=== PATIENT | female | born 1945 ===

== ENCOUNTER 2022-08-26 05:57 | Day surgery (SDC) | payer OTHER ==
[~2022-08-26] VITALS: Ht 165.1 cm; Wt 63.5 kg
[~2022-08-26 05:57] MED LIST: ANASTROZOLE1 MG PO; COZAAR100 MG PO; CRESTOR5 MG PO; TOPROL XL50 M1 PO; ZOLOFT100 MG PO
== END 2022-08-26 11:55 | disposition home or self-care (01) ==
LOC: CIR.AMB 05:57
PROVIDERS: ATTEND Orthopaedic Surgery Hand Surgery
DX: G56.02 Carpal tunnel syndrome, left upper limb (principal); E11.9 Type 2 diabetes mellitus without complications; E78.00 Pure hypercholesterolemia, unspecified; Z20.822 Contact with and (suspected) exposure to COVID-19; I10 Essential (primary) hypertension

== ENCOUNTER 2023-01-27 05:32 | Day surgery (SDC) | payer OTHER ==
[2023-01-22 10:12] LABS: HEMATOCRIT 37.7 % (36.0-45.00); HEMOGLOBIN 12.8 g/dL (12.0-15.00); MEAN CELL VOLUME 88.5 fL (80.00-100.00); PLATELET COUNT 236 K/uL (150-450); RED BLOOD COUNT 4.26 M/uL (4.00-6.00); RED CELL DISTRIBUTION WIDTH 13.7 % (11.5-14.5)
[2023-01-22 10:16] LABS: PH,URINE 5.5 (5.0-8.0); URINE APPEARANCE Clear; URINE BILIRRUBIN Negative (NEGATIVE); URINE BLOOD Negative; URINE COLOR Yellow; URINE GLUCOSE Negative (NEGATIVE); URINE LEUKOCYTE Negative; URINE NITRATE Negative; URINE PROTEIN Negative (NEGATIVE); URINE UROBILINOGEN 0.2 E.U./dl
[2023-01-22 10:20] LABS: URINE BACTERIA 6.2 uL (0.0-1933); URINE RBC 2.2 uL (0.0-20.8); URINE WBC 2.6 uL (0.0-23.2)
[2023-01-22 10:27] LABS: URINE EPITHELIAL CELLS 0.7 uL (0.0-38.8)
[2023-01-22 10:33] LABS: INR 0.97; PARTIAL THROMBOPLASTIN TIME 26.7 SECONDS (22.0-34.0); PROTHROMBIN TIME 10.2 SECONDS (9.0-11.5)
[2023-01-22 11:16] LABS: ALBUMIN 3.6 gm/dL (3.4-5.0); BILIRUBIN TOTAL 0.65 mg/dL (0.3-1.2); CALCIUM 9.3 mg/dL (8.5-10.1); CREATININE SERUM 1.16 mg/dL (0.55-1.02); GFR 45.06; GLOBULINA 3.4 G/DL (2.4-3.5); POTASSIUM 5.09 mEq/L (3.5-5.1)
[~2023-01-27] VITALS: Ht 165.1 cm; Wt 63.5 kg
[~2023-01-27 05:32] MED LIST changes: +LEVO-T25 MCG PO
== END 2023-01-27 11:00 | disposition home or self-care (01) ==
LOC: CIR.AMB 05:32
PROVIDERS: ATTEND Orthopaedic Surgery Hand Surgery
DX: G56.01 Carpal tunnel syndrome, right upper limb (principal); E11.9 Type 2 diabetes mellitus without complications; E78.00 Pure hypercholesterolemia, unspecified; E78.3 Hyperchylomicronemia; I10 Essential (primary) hypertension

== ENCOUNTER 2023-11-17 07:15 | Day surgery (SDC) | payer OTHER ==
[2023-11-16 12:47] LABS: HEMATOCRIT 35.2 % (36.0-45.00); HEMOGLOBIN 11.9 g/dL (12.0-15.00); MEAN CELL VOLUME 88.3 fL (80.00-100.00); MEAN CORPUSCULAR HEMOGLOBIN 29.8 pg (27.00-32.0); MEAN CORPUSCULAR HGB CONC 33.8 g/dl (32.0-36.0); PLATELET COUNT 245 K/uL (150-450); RED BLOOD COUNT 3.98 M/uL (4.00-6.00); RED CELL DISTRIBUTION WIDTH 14.1 % (11.5-14.5)
[2023-11-16 12:48] LABS: PH,URINE 5.5 (5.0-8.0); URINE APPEARANCE Clear; URINE BILIRRUBIN Negative (NEGATIVE); URINE BLOOD Negative; URINE COLOR Yellow; URINE GLUCOSE Negative (NEGATIVE); URINE KETONE Negative (NEGATIVE); URINE LEUKOCYTE Negative; URINE NITRATE Negative; URINE PROTEIN Negative (NEGATIVE); URINE UROBILINOGEN 0.2 E.U./dl
[2023-11-16 12:53] LABS: URINE BACTERIA 11.3 uL (0.0-1933); URINE EPITHELIAL CELLS 2.9 uL (0.0-38.8); URINE RBC 3.2 uL (0.0-20.8); URINE WBC 2.7 uL (0.0-23.2)
[2023-11-16 12:57] LABS: URINE CAST 0.15 uL (0.0-1.40)
[2023-11-16 13:24] LABS: INR 0.96; PARTIAL THROMBOPLASTIN TIME 29.3 SECONDS (22.0-34.0); PROTHROMBIN TIME 10.1 SECONDS (9.0-11.5)
[2023-11-16 13:31] LABS: ALBUMIN 3.7 gm/dL (3.4-5.0); BILIRUBIN TOTAL 0.65 mg/dL (0.3-1.2); CALCIUM 9.4 mg/dL (8.5-10.1); CREATININE SERUM 1.15 mg/dL (0.55-1.02); GFR 45.4; GLOBULINA 3.5 G/DL (2.4-3.5); POTASSIUM 4.98 mEq/L (3.5-5.1); TOTAL PROTEIN 7.2 gm/dL (6.4-8.2)
[2023-11-17] MEDS ORDERED: CEFAZOLIN SODIUM 1,000 MG VIAL ONE (13:58)
[2023-11-17] MEDS ORDERED: LIDOCAINE HCL 1%/EPINEPHRINE 20ML VIAL IJ ONE (17:25)
[2023-11-17] MEDS ORDERED: BUPIVACAINE HCL/MPF 0.5% 30ML VIAL ONE (17:25)
[2023-11-17] MEDS ORDERED: POVIDONE-IODINE 118 ML BOTT TOP ONE (19:03)
[2023-11-17] MEDS ORDERED: SUGAMMADEX SODIUM 200 MG/2 ML VIAL IV ONE (19:36)
[2023-11-17] MEDS ORDERED: ALEVE220 M1 PO (19:40)
[2023-11-17] MEDS ORDERED: PERCOCET 5-3251 EACH PO (19:40)
[2023-11-17] MEDS ORDERED: CEFADROXIL500 MG PO (19:40)
[2023-11-17] MEDS ORDERED: ONDANSETRON HCL 2 MG/ML VIAL ONE (21:05)
== END 2023-11-17 22:10 | disposition home or self-care (01) ==
LOC: CIR.AMB 07:15
PROVIDERS: ATTEND Orthopaedic Surgery
DX: S72.301A Unspecified fracture of shaft of right femur, initial encounter for closed fracture (principal); M81.0 Age-related osteoporosis without current pathological fracture; E03.9 Hypothyroidism, unspecified; I10 Essential (primary) hypertension
CPT/HCPCS: 24685; 20902; L8699